=== PATIENT | male | born 1960 | race Two or more races ===

== ENCOUNTER 2016-09-27 10:30 | Emergency (ER) | payer MEDICAID ==
[~2016-09-27] VITALS: Ht 182.9 cm; Wt 84.4 kg
[~2016-09-27 10:30] MED LIST: BLOO-296 MC; BLOO1EAC70 MC; FLUD0.1T3 PO; GENT30OI2 TP; INSU100C10 SQ; INSU100V7 SQ; LISI10TA59 PO; SYRI1DIS86 MC
--- NOTE | 2016-09-27 10:50 | NUR ---
SENT BY PMD FOR ANEMIA AND POSS UPPER GI BLEED. NAD NOTED. PT AAOX3. SAFETY AND COMFORT MEASURES PROVIDED. WILL MONITOR.
[2016-09-27] MEDS ORDERED: IV NS 0.9% 1,000 ML BAG IV ONE (13:00)
[2016-09-27] MEDS ORDERED: IV NS 0.9% 1,000 ML ONE (13:01)
[2016-09-27] MEDS ORDERED: IV SET PRIMARY PUMP SET 1 EA INFUS.SET MC ONE (13:01)
[2016-09-27 13:09] LABS: BASOPHILS # (AUTO) 0.1 /CMM (0.0-0.2); BASOPHILS % (AUTO) 0.7 % (0.0-2.0); EOSINOPHILS # (AUTO) 0.5 /CMM (0.0-0.7); EOSINOPHILS % (AUTO) 4.5 % (0.0-6.0); HEMATOCRIT 29 % (39-51); HEMOGLOBIN 9.1 g/dL (13.5-17.5); LYMPHOCYTES # (AUTO) 2.1 /CMM (0.8-4.8); MEAN CORPUSCULAR HEMOGLOBIN 21 PG (26.0-33.0); MEAN CORPUSCULAR HGB CONC 31 g/dl (31.0-36.0); MEAN CORPUSCULAR VOLUME 67 fL (80-96); MONOCYTES # (AUTO) 0.8 /CMM (0.1-1.30); MONOCYTES % (AUTO) 7.4 % (2.0-12.0); NEUTROPHILS # (AUTO) 7.5 /CMM (1.8-8.9); NEUTROPHILS % (AUTO) 68.4 % (43.0-81.0); PLATELET COUNT (AUTO) 417 /CMM (150-450); RDW COEFFICIENT OF VARIATION 16.3 (11.5-15.0); RED BLOOD CELL COUNT(AUTO) 4.39 MIL/uL (4.5-6.0)
[2016-09-27 13:19] LABS: CALCIUM, SERUM 9.6 mg/dL (8.5-10.1); CARBON DIOXIDE 26 mmol/L (21-32); CHLORIDE 105 mmol/L (98-107); CREATININE 1.6 mg/dL (0.6-1.3); GFR 45 mL/min (>60); GLUCOSE 128 mg/dL (74-106); POTASSIUM 5.6 mmol/L (3.5-5.1); SODIUM SERUM 136 mmol/L (136-145); UREA NITROGEN, BLOOD 25 mg/dL (7-18)
--- NOTE | 2016-09-27 13:20 | NUR ---
IV ACCESS STARTED. BLOOD DRAWN FOR LABS. PT MEDICATED ORDERED.
[2016-09-27 13:28] LABS: TROPONIN I < 0.017 ng/mL (0.00-0.056)
[2016-09-27 13:38] LABS: INR 1.09 (0.87-1.13); PROTHROMBIN TIME 11.3 SECS (9.5-12.7)
--- NOTE | 2016-09-27 14:20 | NUR ---
Patient discharged to home in stable condition. Written and verbal after care instructions given. Patient verbalizes understanding of instruction.IV removed. Catheter intact and site benign. Pressure and 4x4 applied to site. No bleeding noted.
[2016-09-27 14:49] VITALS: BP 141/75
== END 2016-09-27 14:49 | disposition home or self-care (01) ==
LOC: ER 10:38
DX: D50.0 Iron deficiency anemia secondary to blood loss (chronic) (principal); I95.1 Orthostatic hypotension; F17.200 Nicotine dependence, unspecified, uncomplicated; Z88.6 Allergy status to analgesic agent; G61.0 Guillain-Barre syndrome
CPT/HCPCS: 36415; 71010-TC; 80048-TC; 84484-TC; 85025-TC; 85730-TC; 86850-TC; A4606; J7030; Z7610